=== PATIENT | male | born 1985 | race Caucasian/White ===

== ENCOUNTER 2024-10-05 02:19 | Outpatient (CLI) | payer BC, SELFPAY ==
--- NOTE | 2024-10-05 08:20 | DI.RAD_ITS ---
Exam(s) XR ELBOW RT COMPLETE EXAM: XR ELBOW RT COMPLETE CLINICAL HISTORY: Rt elbow injured while lifting April 2024. TECHNIQUE: 2D digital imaging was performed. COMPARISON: No exams were available for comparison FINDINGS: 3 views No evidence of fracture or joint effusion. No swelling of the olecranon bursa. Bone density normal. No degenerative changes. Radial head and neck unremarkable. Epicondyles unremarkable. IMPRESSION: No significant osseous findings in the elbow. DATA REPOSITORY: RADIATION DOSE DELIVERED:
== END 2024-10-05 02:39 ==
PROVIDERS: PCP Physician Assistant; Visit Provider Physician Assistant
DX: M25.521 Pain in right elbow (principal)
CPT/HCPCS: 73080

== ENCOUNTER 2024-12-07 02:32 | Outpatient (CLI) | payer BC, SELFPAY ==
--- NOTE | 2024-12-07 06:45 | DI.MRI_ITS ---
Exam(s) MR UPPER JOINT RT WO EXAM: MR UPPER JOINT RT WO CLINICAL HISTORY: R ELBOW INJURY,TRAUMATIC RUPTURE RT BICEPS TENDON,S46.211A TECHNIQUE: Multiplanar multisequence MRI was performed without intravenous contrast. COMPARISON: No exams were available for comparison FINDINGS: MARROW: There is no evidence of fracture, bone contusion, nor ominous osseous lesions. Radial head a nd neck appear unremarkable. ELBOW JOINT: There is no evidence of elbow joint effusion.No significant cartilage loss nor osteochon dral defect and there is no evidence of loose intra-articular body. There are no osteophytes. EPICONDYLES: Small focus of increased signal at the insertional aspect of the common flex or tendon u eugenia the medial epicondyle. No intraosseous signal abnormality at this level. ULNAR COLLATERAL LIGAMENT: The anterior band which extends from the medial epicondyle to the sublime tubercle of the coronoid process of the ulna is intact. This structure is the strongest ligament in t he elbow and is the main opponent to severe valgus stress. RADIAL COLLATERAL LIGAMENT: Intact TENDONS: There is signal abnormality consistent with partial tearing of the biceps tendon at the insertional a spect. There does not appear to be a complete tear and there is no retraction of the tendon.. The brachialis tendon is intact. The triceps tendon is intact. CUBITAL TUNNEL/ULNAR NERVE: The ulnar nerve appears unremarkable beneath the cubital tunnel retinacul um/ arcuate ligament and posterior to the medial epicondyle. There is no evidence of arthritic spur arising from the epicondyle nor olecranon causing impingement on the ulnar nerve. There is no eviden ce of accessory anconeus muscle causing impingement at this level. There is also no evidence of soft tissue mass nor ganglia on cyst causing impingement at this level. OTHER FINDINGS: IMPRESSION: 1. Findings consistent with partial tearing of the distal biceps tendon at insertional aspect. There does not appear to be a full-thickness tear. 2. Mild focal signal at the insertional aspect of the common flexor tendon upon the medial epicondyle . No abnormal intraosseous signal at this level. Correlation with any clinical findings of medial e picondylitis recommended. DATA REPOSITORY:
== END 2024-12-07 02:52 ==
LOC: DI 02:32
PROVIDERS: PCP Physician Assistant; Visit Provider Student in an Organized Health Care Education/Training Program
DX: S46.211A Strain of muscle, fascia and tendon of other parts of biceps, right arm, initial encounter (principal); X58.XXXA Exposure to other specified factors, initial encounter
CPT/HCPCS: 73221

== ENCOUNTER → 2025-09-05 14:50 | Outpatient (CLI) | payer BC, SELFPAY ==
--- NOTE | 2025-09-05 16:15 | DI.RAD_ITS ---
Exam(s) XR ANKLE RT COMPLETE EXAM: XR ANKLE RT COMPLETE CLINICAL HISTORY: M25.571 Acute RT ankle/joints pain, eval pathology. TECHNIQUE: 2D digital imaging was performed. COMPARISON: No exams were available for comparison FINDINGS: 3 views There is an acute transverse pressure in the lateral malleolus, nondisplaced. Overlying soft tissue swelling evident. No radiopaque foreign bodies. There is no widening the ankle mortise. Medial and posterior malleoli appear unremarkable as does the talar dome. There is no osseous tarsal coalition. No inferior calcaneal spur. No incidental significant osseous lesions. Benign bone island noted in the calcaneus IMPRESSION: Transverse fracture in the tip of the lateral malleolus. Overlying soft tissue swelling. DATA REPOSITORY: RADIATION DOSE DELIVERED:
--- NOTE | 2025-09-05 17:18 | DI.VRAD_ITS ---
PROCEDURE INFORMATION: Exam: XR Right Ankle Exam date and time: 09/05/2025 4:50 PM Age: 40 years old Clinical indication: Other: Acute right ankle pain TECHNIQUE: Imaging protocol: Radiologic exam of the right ankle. Views: 3 or more views. COMPARISON: No relevant prior studies available. FINDINGS: Bones/joints: There is an acute, minimally distracted fracture extending predominantly horizontally through the distal aspect of the lateral malleolus. No other fracture is identified. Cannot confirm joint alignment without additional obliquities. The ankle mortise is preserved on these nonstressed views. A bone island is noted in the calcaneus. Soft tissues: There is soft tissue swelling laterally. IMPRESSION: Acute lateral malleolar fracture. Dictated and Authenticated by: Aramis Uribe MD. Orderin Oj Anders MD
== END ==
PROVIDERS: PCP Physician Assistant; Visit Provider Nurse Practitioner Family
DX: M25.571 Pain in right ankle and joints of right foot (principal)
CPT/HCPCS: 73610

== ENCOUNTER 2025-09-25 11:34 | Outpatient (CLI) | payer OTHER, SELFPAY ==
--- NOTE | 2025-09-25 11:15 | DI.RAD_ITS ---
Exam(s) XR ANKLE RT COMPLETE EXAM: XR ANKLE RT COMPLETE CLINICAL HISTORY: RIGHT ANKLE FRACTURE. TECHNIQUE: 2D digital imaging was performed of the right ankle. Four images were obtained. AP, lateral and oblique views were obtained. COMPARISON: CR,XR XR ANKLE RT COMPLETE from 09/05/2025 FINDINGS: BONES: There is no change in alignment of the fracture involving the lateral malleolus. On the lateral view there is a question of disruption of the cortex in the calcaneus in the subtalar region. (Image 1). This may represent a calcaneal fracture. Possibly of a fracture involving the sustentacular talus should be considered. Please correlate with patient's site of pain. CT scan may be considered for further evaluation. No bony destructive lesion is seen. JOINTS: The ankle mortise is normally aligned. SOFT TISSUE: Normal. IMPRESSION: 1. Stable alignment of the fracture involving the lateral malleolus. 2. Question of a fracture involving the superior aspect of the calcaneus as seen on [address] scan may be considered for further evaluation, if clinically appropriate. Unexpected findings DATA REPOSITORY: RADIATION DOSE DELIVERED:
== END 2025-09-25 11:35 | disposition home or self-care (01) ==
LOC: DIORS 11:34
PROVIDERS: PCP Physician Assistant; Visit Provider Student in an Organized Health Care Education/Training Program
DX: S99.911A Unspecified injury of right ankle, initial encounter (principal)
CPT/HCPCS: 73610